=== PATIENT | male | born 1995 | race African-American/Black ===

== ENCOUNTER 2020-03-29 19:08 | Emergency (ER) | payer MEDICAID ==
[~2020-03-29] VITALS: Ht 167.6 cm; Wt 56.0 kg
[2020-03-29] MEDS ORDERED: KETOROLAC 60 MG/2 ML VIAL. IM ONE (20:15)
[2020-03-29] MEDS ORDERED: HYDROcodone/APAP 5/325MG 1 TAB TABLET PO ONE (20:15)
--- NOTE | 2020-03-29 21:01 | RAD ---
PROCEDURE: XR EXAM OF ANKLE_LEFT 3V STUDY DATE: 03/29/2020 CLINICAL INDICATION / HISTORY: Reason: TWISTED AND FELT POP, lateral pain / Spl. Instructions: / His tory: . TECHNIQUE: Left ankle 3 views. COMPARISON: None FINDINGS: The ankle mortise is approximated, and the talar dome is unremarkable. The joint space widt hs are maintained. No fracture or dislocation is identified. No soft tissue swelling is appreciated. Minimal soft tissue stranding anterior to the tibial plafond is noted. IMPRESSION: Left ankle sprain. No acute osseous abnormality. Electronically signed by: Jakub Mejía MD (03/29/2020 8:59 PM) [facility] [place]
[2020-03-29] MEDS ORDERED: IBUP600T16 PO (21:07)
--- NOTE | 2020-03-29 21:08 | PHYS DOC ---
Past History Past Medical History: No Pertinent History (SALVATORE HILTON APRN) Past Surgical History: Other Additional Past Surgical Histo: R TESTICLE (SALVATORE HILTON APRN) Alcohol Use: None (SALVATORE HILTON APRN) Adult General Chief Complaint Chief Complaint: FOOT INJURY PAIN HPI HPI Patient is a 24-year-old male who presents to the emergency department today with complaints of left ankle pain after rolling it while walking down the steps at 8:00 this morning. Patient states he felt a pop. Patient has not taken anything for the pain today. Patient denies any other physical complaints or physical injuries. Patient denies any numbness or tingling distal to his ankle pain. Specifically complains of lateral ankle pain. Patient rates his pain at a 8/10 pain (SALVATORE HILTON APRN) Review of Systems Review of Systems 14 body systems of review of systems have been reviewed. See HPI for pertinent positives and negative responses, otherwise all other systems are negative, non pertinent or noncontributory. (SALVATORE HILTON APRN) Current Medications Current Medications Current Medications Medications (Trade) Dose Ordered Sig/Kathleen Start Time Stop Time Status Last Admin Dose Admin Acetaminophen/ Hydrocodone Bitart (Lortab 5/325) 1 tab 1X ONCE 03/29/20 20:15 03/29/20 20:16 DC 03/29/20 20:16 1 TAB Ketorolac Tromethamine (Toradol Im) 60 mg 1X ONCE 03/29/20 20:15 03/29/20 20:16 DC 03/29/20 20:16 60 MG (SALVATORE HILTON APRN) Allergies Allergies Allergies Coded Allergies Type Severity Reaction Last Updated Verified No Known Drug Allergies 03/29/20 No (SALVATORE HILTON APRN) Physical Exam Physical Exam Constitutional: Well developed, well nourished, no acute distress, non-toxic appearance. HENT: Normocephalic, atraumatic, bilateral external ears normal, oropharynx moist, no oral exudates, nose normal. Eyes: PERRLA, EOMI, conjunctiva normal, no discharge. Neck: Normal range of motion, no tenderness, supple, no stridor. Cardiovascular:Heart rate regular rhythm, no murmur Lungs & Thorax: Bilateral breath sounds clear to auscultation Abdomen: Bowel sounds normal, soft, no tenderness, no masses, no pulsatile m asses. Skin: Warm, dry, no erythema, no rash. Back: No tenderness, no CVA tenderness. Extremities: No tenderness, no cyanosis, no clubbing, ROM intact, no edema. Except for left ankle, lateral malleoli are process pinpoint pain to palpation, full AROM/PROM, 2+ dorsalis pedis, posterior tibial pulse, distal cap refill less than 2 seconds. No swelling appreciated, no crepitus appreciated Neurologic: Alert and oriented X 3, normal motor function, normal sensory function, no focal deficits noted. [] Psychologic: Affect normal, judgement normal, mood normal. [] (SALVATORE HILTON APRN) Current Patient Data Vital Signs Vital Signs Date Time Temp Pulse Resp B/P (MAP) Pulse Ox O2 Delivery O2 Flow Rate FiO2 03/29/20 19:15 98.9 98 20 117/55 (75) 96 Room Air (SALVATORE HILTON APRN) EKG EKG [] (SALVATORE HILTON APRN) Radiology/Procedures Radiology/Procedures PATIENT: ROCKY MEDEIROSACCOUNT: [id number] : 1995 LOCATION: ER AGE: 24 SEX: M EXAM STATUS: REG ER ORD. PHYSICIAN: SALVATORE HILTON APRN REASON: TWISTED AND FELT POP, lateral pain PROCEDURE: ANKLE LEFT 3V PROCEDURE: XR EXAM OF ANKLE_LEFT 3V STUDY DATE: 03/29/2020 CLINICAL INDICATION / HISTORY: Reason: TWISTED AND FELT POP, lateral pain / Spl. Instructions: / History: . TECHNIQUE: Left ankle 3 views. COMPARISON: None FINDINGS: The ankle mortise is approximated, and the talar dome is unremarkable. The joint space widths are maintained. No fracture or dislocation is identified. No soft tissue swelling is appreciated. Minimal soft tissue stranding anterior to the tibial plafond is noted. IMPRESSION: Left ankle sprain. No acute osseous abnormality. Electronically signed by: Bogdan Mejía MD (03/29/2020 8:59 PM) [facility] [place] DICTATED AND SIGNED BY: BOGDAN MEJÍA MD DATE: 03/29/202057 CC: SALVATORE HILTON APRN; EMERGENCY,DEPARTMENT; PCP,NO ~MTH0 0 (SALVATORE HILTON APRN) Heart Score Risk Factors: Risk Factors: DM, Current or recent (<one month) smoker, HTN, HLP, family history of CAD, obesity. Risk Scores: Risk Factors: DM, Current or recent (<one month) smoker, HTN, HLP, family history of CAD, obesity. (SALVATORE HILTON APRN) Course & Med Decision Making Course & Med Decision Making Pertinent Labs and Imaging studies reviewed. (See chart for details) 24-year-old male, vital signs reviewed, presents to the ER with left ankle pain after twisted it earlier today. A x-ray was ordered. X-ray of left ankle was read negative for acute fracture, most likely ankle sprain by house radiologist interpretation. Discussed findings with patient, will use RICE therapy, ankle stirrup, Joseph, crutches, follow-up with primary care as needed. Patient gave verbal understanding of discharge home instructions, follow-up instructions, return to ER concerns, discharged home without incident. (SALVATORE HILTON APRN) Course & Med Decision Making Did not see or evaluate patient. Did not discuss patient with CHIEF SOLUTION ARCHITECT. Agree with me work-up and disposition noted (NICKY CORRAL MD) Dragon Disclaimer Dragon Disclaimer This electronic medical record was generated, in whole or in part, using a voice recognition dictation system. (SALVATORE HILTON APRN) Departure Departure: Impression: Primary Impression: Ankle sprain Disposition: 01 DC HOME SELF CARE/HOMELESS Condition: GOOD Referrals: PCP,NO (PCP) Patient Instructions: Ankle Sprain Additional Instructions: Use ankle stirrup for the next week, use RICE therapy for discomfort and pain, take prescription pain medications as directed, follow-up with your primary care physician for ongoing aches and pains of your ankle, return to the emergency department for worsening symptoms. Scripts Ibuprofen (IBUPROFEN) 600 Mg Tablet 600 MG PO TID PRN PRN for PAIN, #20 TAB 0 Refills Prov: SALVATORE HILTON APRN 03/29/20 Problem Qualifiers Primary Impression: Ankle sprain Encounter type: initial encounter Involved ligament of ankle: unspecified ligament Laterality: left Qualified Codes: S93.402A - Sprain of unspecified ligament of left ankle, initial encounter SALVATORE HILTON APRN Mar 29, 2020 21:08 NICKY CORRAL MD Mar 29, 2020 22:01
[2020-03-29 21:15] VITALS: BP 119/78
== END 2020-03-29 21:25 | disposition home or self-care (01) ==
LOC: ER 19:08
DX: S93.402A Sprain of unspecified ligament of left ankle, initial encounter (principal); X50.9XXA Other and unspecified overexertion or strenuous movements or postures, initial encounter; Y93.01 Activity, walking, marching and hiking; Y92.89 Other specified places as the place of occurrence of the external cause; Y99.8 Other external cause status
CPT/HCPCS: 73610; 96372; 99283; J1885; L4350